=== PATIENT | male | born 1980 | race Caucasian/White ===

== ENCOUNTER → 2016-11-09 | Day surgery (SDC) | payer MEDICARE, OTHER ==
[~2016-11-09] MED LIST: ADDERALL10 MG PO; CARAFATE1 G PO; HYDROCODONE BITA5 GM PO; LORTAB 5/500 TA1 TA1 PO; PROTONIX PO
--- NOTE | ~2016-11-09 | CR281 ---
[facility] A Service of [facility] & [facility] RADIOLOGY TEXT RESULTS PATIENT: MEGHAN ARGUELLES LOCATION: [facility] : [birth year] UNIT #: [id number] AGE: [address]: Hermes Smith MD SEX: M ORDER DR: [id number] [facility] [address] [place], [place] [address] [id number] O MR#: [id number] Acc #: [id number] NAME: MEGHAN ARGUELLES : 1980 SEX: M STUDY DATE/TIME: 11/09/2016 15:33 UNIT: [facility] ROOM: STUDY DESCRIPTION: CR Wrist Min 3 View Lt Attending Physician: Hermes Smith M.D. Referring Physician: Hermes Smith M.D. Ordering Physician: Hermes Smith M.D. Primary Care Physician: No Primary Care Physician MEDICAL IMAGING REPORT This report is preliminary unless electronic signature is present EXAM C-arm fluoroscopy with 3 permanent images of the left wrist, 11/09/2016. HISTORY ORIF left wrist fracture. FINDINGS C-arm fluoroscopy was provided for use in the operating room. Three spot film radiographs of the left wrist were obtained in the anterior and lateral projections documenting placement of surgical plate and screws across the distal radial fracture. The bones appear in anatomic alignment. Note is made of an approximate 2 cm linear metallic density possibly representing a foreign body within the volar soft tissues overlying the distal ulna. Clinical correlation is recommended. 25 seconds of fluoroscopy time was utilized. IMPRESSION 1. Status post placement of surgical plate and screws across the distal radial fracture. 2. 2 cm linear metallic density within the volar soft tissues overlying the distal ulna. I cannot exclude the possibility of foreign body on the basis of this examination. Clinical correlation is recommended. STAT * RESULT Dictated by... Chito Choi M.D. THIS IS AN ELECTRONICALLY VERIFIED REPORT Chito Choi M.D. at 11/09/2016 5:05 PM KRT/jt [facility]. [facility] A Service of [facility] & [facility] RADIOLOGY TEXT RESULTS PATIENT: MEGHAN ARGUELLES [facility] #: [id number] : [birth year] UNIT #: [id number] AGE: [address]: Hermes Smith MD SEX: M ORDER DR: TD: 11/09/2016 16:12 JOB #: [id number] MEDICAL IMAGING REPORT Page 1 of 1 COPY
--- NOTE | ~2016-11-09 | OR ---
Unit #: [id number] #: [id number] Patient: MEGHAN ARGUELLES [id number] [address] [address] [id number] O MR#: [id number] NAME: MEGHAN ARGUELLES ROOM: Date of Procedure: 11/09/2016 Admission Date: 11/09/2016 Surgeon: Hermes Smith M.D. : 1980 Attending Physician: Hermes Smith M.D. Referring Physician: Hermes Smith M.D. Primary Care Physician: Primary Care Physician No OPERATIVE REPORT PREOPERATIVE DIAGNOSIS Left intraarticular displaced distal radius fracture. POSTOPERATIVE DIAGNOSIS Left intraarticular displaced distal radius fracture. PROCEDURE PERFORMED Open reduction and internal fixation of left intraarticular distal radius fracture, [address]. TIRE STRIPPER Cassandra Garcia CFA. ANESTHESIA General with LMA. COMPLICATIONS None. SPECIMENS None. DRAINS None. SURGICAL IMPLANTS [employer] distal radius locking plate. INDICATION FOR PROCEDURE Meghan is a 36-year-old male, who injured his left wrist resulting in a displaced volar [place] wrist fracture. I reviewed the imaging with the patient. Due to the volar displacement and intraarticular nature, it was felt he would benefit from open reduction and internal fixation. The patient elected to proceed with surgery. Risks, benefits, and alternatives discussed. Risks include, but not limited to, infection, bleeding, nerve injury, blood clots, risks associated with anesthesia, need for further surgery, persistent pain, and possibly . DESCRIPTION OF PROCEDURE On 11/09/2016, the patient was seen in preoperative holding area, where his surgical site was marked. Preoperative antibiotics were received. H and P and consent updated. Preoperative block performed. He was taken to Unit #: [id number] #: [id number] Patient: MEGHAN ARGUELLES the operating room and provided general anesthesia. Left arm tourniquet placed. Left upper extremity was prepped and draped in typical sterile fashion. Time-out performed confirming the correct surgical site and procedure. At this point, Esmarch was used to exsanguinate the arm and tourniquet inflated to 250 mmHg. A standard volar approach to the distal radius performed. Incision was taken down through the skin and subcutaneous tissues. FCR tendon mobilized in an ulnar direction. Underlying fascia carefully split. Pronator quadratus elevated off the distal radius. Significant volar displacement noted. There was a coronal plane split noted. This was intraarticular. Retractors carefully placed around the distal radius. It was felt a narrow short plate would be most appropriate to help reduce the fracture. The plate was secured at the right height. It was checked on both AP and lateral planes. It was then fixated distally with multiple locking pegs that were unicortical. Once this was complete, a bicortical screw was placed in the shaft and the plate was used to help reduce the fracture with a buttress along the volar aspect. The plate was sucked down to the shaft better reducing the intraarticular component of the fracture. Two more cross locking screws were placed bicortically in the shaft. Once this was complete, all instruments were removed. Final AP, oblique, and lateral view images were taken confirming appropriate reduction of fracture and placement of hardware. Tourniquet was released at approximately 34 minutes. Hemostasis achieved. Wound thoroughly irrigated. Subcutaneous tissue was closed with 3-0 Vicryl suture followed by a running subcuticular 4-0 Monocryl stitch. Steri-Strips, Xeroform, 4x4s, and a well-padded volar splint were placed. The patient was subsequently awakened from general anesthesia in stable condition and taken to PACU postoperatively. Also of note, prior to surgery was discussed with the patient that we may possibly remove the foreign body. The patient was noted to have a small metallic object consistent with a hypodermic needle within the wrist. He noted that to be there for couple of years. At initial imaging, I thought it might be in the path of the volar approach. However, intraoperative imaging noted that the retained body was significantly ulnar to where we would be working. It was felt that leaving this alone was most appropriate. POSTOPERATIVE PLAN The patient will be discharged home. Follow up in the office in 10 to 14 days. No complications encountered during the surgical procedure. Dictated by... Hermes Smith M.D. LENNY/ayo TD: 11/11/2016 13:22 JOB #: [id number] Unit #: [id number] #: [id number] Patient: MEGHAN ARGUELLES OPERATIVE REPORT Page 1 of 1 X X PROCEDURE OPERATIVE NOTE
== END | disposition home or self-care (01) ==
LOC: CSUR 12:19
DX: S52.572A Other intraarticular fracture of lower end of left radius, initial encounter for closed fracture (principal)
CPT/HCPCS: 73110; 76001; C1713; J0690; J1100; J2250; J2405; J2795; J3010